=== PATIENT | female | born 1975 | race African-American/Black ===

== ENCOUNTER 2018-08-29 22:03 | Emergency (ER) | payer OTHER ==
[~2018-08-29] VITALS: Ht 167.6 cm; Wt 73.7 kg
[2018-08-29 22:18] VITALS: BP 121/80
== END 2018-08-29 22:58 | disposition left against medical advice (07) ==
LOC: ER 22:03
DX: R10.9 Unspecified abdominal pain (principal); Z53.21 Procedure and treatment not carried out due to patient leaving prior to being seen by health care provider